=== PATIENT | male | born 1945 | race Two or more races ===

== ENCOUNTER 2024-06-18 19:32 | Emergency (ER) | payer BC, OTHER ==
[~2024-06-18] VITALS: Ht 172.7 cm; Wt 65.9 kg
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
--- NOTE | 2024-06-18 20:44 | DVH ---
XY L WRIST 3+ VIEW XRAY, INDICATION: left wrist TECHNICAL DATA: Frontal , bilateral oblique, ulnar deviation and lateral views were obtained of the l eft wrist. COMPARISON: None FINDINGS: No fracture is identified. Mild joint space narrowing. Alignment is anatomic. Ulnar variance is marty l. Soft tissues are within normal limits. IMPRESSION: No acute fracture or dislocation of the left wrist.
[2024-06-18] MEDS: ACETAMINOPHEN 325 MG TAB PO ONE (23:11)
[2024-06-18 23:29] VITALS: BP 155/62; PULSE 77; RESP 20; TEMP 97.4; O2SAT 96
== END 2024-06-18 23:31 | disposition home or self-care (01) ==
LOC: ER 19:32 → EDBD 19:32 → ER 23:31
DX: S60.812A Abrasion of left wrist, initial encounter (principal); I10 Essential (primary) hypertension; V89.2XXA Person injured in unspecified motor-vehicle accident, traffic, initial encounter; Y93.I9 Activity, other involving external motion; Y92.89 Other specified places as the place of occurrence of the external cause; Y99.8 Other external cause status
CPT/HCPCS: 73110